=== PATIENT | male | born 1965 | race Caucasian/White ===

== ENCOUNTER 2020-11-28 23:29 | Emergency (ER) | payer OTHER ==
[~2020-11-28] VITALS: Ht 177.8 cm; Wt 99.8 kg
[2020-11-29 00:46] LABS: ABSOLUTE NEUTROPHILS 5.8 thou/uL (1.4-8.2); BASOPHILS 0.9 % (0.0-2.0); EOSINOPHILS 2.1 % (0.0-3.0); HEMATOCRIT 46.7 % (42.0-52.0); HEMOGLOBIN 15.8 gm/dL (14.0-18.0); LYMPHOCYTES 21.2 % (24.0-44.0); MCHC 33.8 g/dL (28.0-37.0); MCV 88.7 fL (80.0-100.0); MONOCYTES 8.3 % (1.0-8.0); PLATELET COUNT 238 thou/uL (150-400); POLYS 67.5 % (36.0-66.0); RBC 5.27 mil/uL (4.50-6.00); RDW 13.3 % (10.5-14.5); WBC 8.6 thou/uL (4.0-11.0)
[2020-11-29 00:53] LABS: ANION GAP 14 mmol/L (7-16); BUN 12 mg/dL (7-18); CALCIUM 9.7 mg/dL (8.5-10.1); CHLORIDE 99 mmol/L (98-107); CO2 23 mmol/L (21-32); CREATININE 0.9 mg/dL (0.7-1.3); GLUCOSE 295 mg/dL (74-106); POTASSIUM 3.4 mmol/L (3.5-5.1); SODIUM 136 mmol/L (136-145)
[2020-11-29 01:04] LABS: ALBUMIN 4.2 g/dL (3.4-5.0); DIRECT BILIRUBIN 0.1 mg/dL (<0.1-0.2); SGOT 19 U/L (15-37); SGPT 42 U/L (30-65); TOTAL BILIRUBIN 0.8 mg/dL (0.2-1.0); TROPONIN-I <0.06 ng/mL (<0.06)
[2020-11-29 02:31] VITALS: BP 169/99
--- NOTE | 2020-11-29 10:41 | EKG ---
[address] [place] [address] ELECTROCARDIOGRAM REPORT Name: LYNDA MARTINEZ Room #: DEP Anne#: [id number] Admission: 11/28/20 Attend Phys: Discharge: 11/29/20 Date of : 69 Report #: [id number] [facility] ED Test Date: 2020-11-29 Test Time: 00:07:37 Pat Name: LYNDA MARTINEZ Department: Room: Gender: Supervisor Education: : 1965 Requested By: Sarah Dewitt Order Number: [id number] MD: Daniel Sinha Measurements Intervals Allison Rate: 86 P: 0 ND: 151 QRS: -14 QRSD: 106 T: 48 QT: 357 QTc: 427 Interpretive Statements Sinus rhythm No previous ECG available for comparison Electronically Signed On 11-29-2020 10:41:04 TERMINAL CARMAN by Daniel Sinha [email or web address] <ELECTRONICALLY SIGNED> By: Daniel Sinha MD, [facility] 11/29/20 1041 [id number] Daniel Sinha MD, FACC /EPI
== END 2020-11-29 02:33 | disposition home or self-care (01) ==
LOC: ER 23:29
PROVIDERS: Emergency Medicine
DX: F41.9 Anxiety disorder, unspecified (principal); R07.89 Other chest pain; R06.00 Dyspnea, unspecified